=== PATIENT | male | born 2000 | race Caucasian/White ===

== ENCOUNTER 2018-07-13 13:56 | Emergency (ER) | payer BC, OTHER ==
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
[2018-07-13] MEDS ORDERED: ACETAMINOPHEN 325 MG TABLET PO ONE (15:10)
[2018-07-13 15:24] VITALS: BP 122/74
== END 2018-07-13 15:21 | disposition home or self-care (01) ==
LOC: ER 13:56
DX: S09.90XA Unspecified injury of head, initial encounter (principal); M54.2 Cervicalgia; R51 Headache; V28.4XXA Motorcycle driver injured in noncollision transport accident in traffic accident, initial encounter
CPT/HCPCS: 99283; 70450; 72125; L0120